=== PATIENT | female | born 1970 | race Hispanic/Latino ===

== ENCOUNTER 2019-05-16 00:13 | Emergency (ER) | payer MEDICAID ==
[2019-05-16] MEDS ORDERED: SODIUM CHLORIDE 0.9% 1000 ML 1,000 ML IV ONE (00:51)
[2019-05-16] MEDS ORDERED: HYOSCYAMINE SUBL 0.125 MG TAB SL ONE (00:51)
[2019-05-16] MEDS ORDERED: PROMETHAZINE 25 MG TAB PO ONE (00:51)
[2019-05-16] MEDS ORDERED: MORPHINE 4 MG/1 ML INJ IV ONE (00:53)
--- NOTE | 2019-05-16 01:40 | Emergency Department Report ---
<JODEE CARTWRIGHT III - Last Filed: 05/16/19 04:01> ED General Adult HPI - General Chief complaint: Nausea/Vomiting/Diarrhea Stated complaint: NAUSEA,ABD PAIN,DIARRHEA Time Seen by Provider: 05/16/19 00:21 - Related Data Previous Rx's Medication Instructions Recorded Last Taken Type Promethazine [Phenergan] 25 mg PO Q8HR PRN #10 tab 05/16/19 Unknown Rx cephALEXin [Keflex] 500 mg PO Q8HR 10 Days #30 cap 05/16/19 Unknown Rx Allergies Allergy/AdvReac Type Severity Reaction Status Date / Time ciprofloxacin Allergy Unknown Verified 05/16/19 00:57 ketorolac [From Toradol] Allergy Unknown Verified 05/16/19 00:57 methadone Allergy Unknown Verified 05/16/19 00:57 metronidazole [From Flagyl] Allergy Unknown Verified 05/16/19 00:57 ondansetron [From Zofran] Allergy Unknown Verified 05/16/19 00:57 phenylephrine Allergy Unknown Verified 05/16/19 00:57 [From Sudafed PE] prochlorperazine Allergy Unknown Verified 05/16/19 00:57 [From Compazine] pseudoephedrine Allergy Nausea Verified 05/16/19 00:57 sulfamethoxazole Allergy Unknown Verified 05/16/19 00:54 [From Bactrim] topiramate Allergy Unknown Verified 05/16/19 00:57 tramadol Allergy Unknown Verified 05/16/19 00:57 trimethoprim [From Bactrim] Allergy Unknown Verified 05/16/19 00:54 ED Past Medical Hx - Medications Home Medications: Home Medications Medication Instructions Recorded Confirmed Last Taken Type Promethazine [Phenergan] 25 mg PO Q8HR PRN #10 tab 05/16/19 Unknown Rx cephALEXin [Keflex] 500 mg PO Q8HR 10 Days #30 cap 05/16/19 Unknown Rx ED Medical Decision Making - Lab Data Result diagrams: 05/16/19 01:23 05/16/19 01:23 ED Disposition Clinical Impression: Generalized abdominal pain, Nausea vomiting and diarrhea UTI (urinary tract infection) Qualifiers: Urinary tract infection type: acute cystitis Hematuria presence: with hematuria Qualified Code(s): N30.01 - Acute cystitis with hematuria Disposition: - TO HOME OR SELFCARE Is pt being admited?: No Does the pt Need Aspirin: No Condition: Stable Instructions: Urinary Tract Infection in Women (ED), Gastroenteritis (ED), Abdominal Pain (ED) Additional Instructions: Please take medication as prescribed. Increase your water intake. Eat a bland diet. Please take the medications you are already prescribed by your other doctors. Follow-up with a primary care doctor. Follow-up with a GI doctor. Return to the emergency room for any new or worsening symptoms. Prescriptions: cephALEXin [Keflex] 500 mg PO Q8HR 10 Days #30 cap Promethazine [Phenergan] 25 mg PO Q8HR PRN #10 tab PRN Reason: Nausea And Vomiting Referrals: your, GI doctor [Other] - 2-3 Days PRIMARY CARE,MD [Primary Care Provider] - 2-3 Days Print Language: INDONESIAN <MILA OCAMPO - Last Filed: 05/17/19 01:50> ED General Adult HPI - General Source: patient, family, certified court/medical interpreter Mode of arrival: Ambulatory Limitations: No Limitations - History of Present Illness Initial comments: Patient is a 48-year-old female presents emergency room with complaints of generalized abdominal pain for a month. She has associated intermittent nausea, vomiting, diarrhea. Patient states that she had a colonoscopy a couple weeks ago by [facility] and is awaiting her biopsy results. She denies any fever, hematochezia, pus in the stool, melena, recent antibiotics, recent travel. She states that she has a history of anemia and is on folic acid. she states that she had a normal CT abd/pelvis at another facility approximately 2-3 weeks ago. Patient states that she is currently taking gabapentin, Bentyl, oxycodone. Patient has multiple allergies listed in her chart. Severity scale (0 -10): 8 ED Review of Systems ROS: Stated complaint: NAUSEA,ABD PAIN,DIARRHEA Other details as noted in HPI Comment: All other systems reviewed and negative ED Past Medical Hx - Past Medical History Previous Medical History?: Yes Hx Hypertension: Yes Hx Diabetes: Yes Hx of Cancer: Yes (colon) Hx Headaches / Migraines: Yes Hx Seizures: Yes Hx Psychiatric Treatment: Yes (Bipolar, depression,anxiety) Additional medical history: biopsy, DDS,GERD,Neuropathy - Surgical History Past Surgical History?: Yes Hx Cholecystectomy: Yes Additional Surgical History: Lap,Knee, hysterectomy, ectopic,D&C - Social History Smoking Status: Never Smoker Substance Use Type: None ED Physical Exam - General Limitations: No Limitations General appearance: alert, in no apparent distress - Head Head exam: Present: atraumatic, normocephalic - Eye Eye exam: Present: normal appearance - ENT ENT exam: Present: mucous membranes moist - Respiratory Respiratory exam: Present: normal lung sounds bilaterally. Absent: respiratory distress, wheezes, rales, rhonchi, stridor, chest wall tenderness, accessory muscle use, decreased breath sounds, prolonged expiratory - Cardiovascular Cardiovascular Exam: Present: regular rate, normal rhythm, normal heart sounds. Absent: systolic murmur, diastolic murmur, rubs, gallop - GI/Abdominal GI/Abdominal exam: Present: soft, tenderness (mild generalized), normal bowel sounds. Absent: distended, guarding, rebound, rigid - Neurological Exam Neurological exam: Present: alert, oriented X3 - Psychiatric Psychiatric exam: Present: normal affect, normal mood - Skin Skin exam: Present: warm, dry, intact ED Course Vital Signs 05/16/19 05/16/19 05/16/19 00:45 01:01 01:15 Pulse Rate 96 H 90 95 H Respiratory 21 18 16 Rate Blood Pressure 135/80 135/80 Blood Pressure 151/79 [Right] O2 Sat by Pulse 97 98 99 Oximetry 05/16/19 05/16/19 05/16/19 01:31 01:45 02:00 Pulse Rate 95 H 88 83 Respiratory 15 20 17 Rate Blood Pressure 135/80 135/80 98/53 Blood Pressure [Right] O2 Sat by Pulse 98 98 Oximetry 05/16/19 05/16/19 05/16/19 02:15 02:31 02:45 Pulse Rate 93 H 101 H 83 Respiratory 13 23 21 Rate Blood Pressure 98/53 135/80 135/80 Blood Pressure [Right] O2 Sat by Pulse 99 97 99 Oximetry 05/16/19 05/16/19 05/16/19 03:00 03:15 03:31 Pulse Rate 83 80 81 Respiratory 20 19 14 Rate Blood Pressure 108/63 108/63 108/63 Blood Pressure [Right] O2 Sat by Pulse 99 97 97 Oximetry 05/16/19 05/16/19 05/16/19 03:45 04:00 04:15 Pulse Rate 80 81 77 Respiratory 15 22 17 Rate Blood Pressure 108/63 122/74 122/74 Blood Pressure [Right] O2 Sat by Pulse 97 95 97 Oximetry ED Medical Decision Making - Lab Data Result diagrams: 05/16/19 01:23 05/16/19 01:23 Lab Results 05/16/19 05/16/19 05/16/19 Range/Units 01:23 01:23 02:39 WBC 4.9 (4.5-11.0) K/mm3 RBC 3.60 L (3.65-5.03) M/mm3 Hgb 12.6 (10.1-14.3) gm/dl Hct 36.8 (30.3-42.9) % MCV 102 H (79-97) fl MCH 35 H (28-32) pg MCHC 34 (30-34) % RDW 14.7 (13.2-15.2) % Plt Count 211 (140-440) K/mm3 Lymph % (Auto) 41.9 H (13.4-35.0) % Blanco % (Auto) 10.3 H (0.0-7.3) % Eos % (Auto) 2.0 (0.0-4.3) % Baso % (Auto) 0.6 (0.0-1.8) % Lymph # 2.0 (1.2-5.4) K/mm3 Blanco # 0.5 (0.0-0.8) K/mm3 Eos # 0.1 (0.0-0.4) K/mm3 Baso # 0.0 (0.0-0.1) K/mm3 Seg Neutrophils % 45.2 (40.0-70.0) % Seg Neutrophils # 2.2 (1.8-7.7) K/mm3 Sodium 144 (137-145) mmol/L Potassium 4.1 (3.6-5.0) mmol/L Chloride 107.3 H (98-107) mmol/L Carbon Dioxide 25 (22-30) mmol/L Anion Gap 16 mmol/L BUN 10 (7-17) mg/dL Creatinine 0.6 L (0.7-1.2) mg/dL Estimated GFR > 60 ml/min BUN/Creatinine Ratio 17 % Glucose 119 H (65-100) mg/dL Calcium 9.2 (8.4-10.2) mg/dL Total Bilirubin 0.20 (0.1-1.2) mg/dL AST 21 (5-40) units/L ALT 31 (7-56) units/L Alkaline Phosphatase 111 (35-129) units/L Total Protein 6.3 (6.3-8.2) g/dL Albumin 3.9 (3.9-5) g/dL Albumin/Globulin Ratio 1.6 % Lipase 9 L (13-60) units/L Urine Color Yellow (Yellow) Urine Turbidity Slightly-cloudy (Clear) Urine pH 5.0 (5.0-7.0) Ur Specific [place] 1.025 (1.003-1.030) Urine Protein 30 mg/dl (Negative) mg/dL Urine Glucose (UA) Neg (Negative) mg/dL Urine Ketones Neg (Negative) mg/dL Urine Blood Mod (Negative) Urine Nitrite Pos (Negative) Urine Bilirubin Neg (Negative) Urine Urobilinogen < 2.0 (<2.0) mg/dL Ur Leukocyte Esterase Sm (Negative) Urine WBC (Auto) 8.0 H (0.0-6.0) /HPF Urine RBC (Auto) 7.0 (0.0-6.0) /HPF U Epithel Cells (Auto) 5.0 (0-13.0) /HPF Urine Bacteria (Auto) 4+ (Negative) /HPF Calcium Oxalate Crystal 1+ Urine Mucus 2+ /HPF - Medical Decision Making Patient is a 48-year-old female presents emergency room with complaints of generalized abdominal pain for a month. She has associated intermittent nausea, vomiting, diarrhea. Patient states that she had a colonoscopy a couple weeks ago by [facility] and is awaiting her biopsy results. She denies any fever, hematochezia, pus in the stool, melena, recent antibiotics, recent travel. She states that she has a history of anemia and is on folic acid. she states that she had a normal CT abd/pelvis at another facility approximately 2-3 weeks ago. Patient states that she is currently taking gabapentin, Bentyl, oxycodone. Patient has multiple allergies listed in her chart. VSS. on exam: mild generalized abd ttp, no guarding, no rebound, no peritoneal signs. labs are stable. UA with evidence of UTI. pt given prescription for keflex and phenergan. advised pt Please take medication as prescribed. Increase your water intake. Eat a bland diet. Please take the medications you are already prescribed by your other doctors. Follow-up with a primary care doctor. Follow-up with a GI doctor. Return to the emergency room for any new or worsening symptoms. - Differential Diagnosis gastroenteritis, obstruction, viral syndrome, IBS, IBD, UTI Critical care attestation.: If time is entered above; I have spent that time in minutes in the direct care of this critically ill patient, excluding procedure time. ED Disposition Is pt being admited?: No Does the pt Need Aspirin: No Time of Disposition: 03:32
[2019-05-16 01:44] LABS: Basophils % (Auto) 0.6 % (0.0-1.8); Eosinophils # (Auto) 0.1 K/mm3 (0.0-0.4); Hematocrit 36.8 % (30.3-42.9); Hemoglobin 12.6 gm/dl (10.1-14.3); Lymphocytes % (Auto) 41.9 % (13.4-35.0); Mean Corpuscular HGB Conc 34 % (30-34); Mean Corpuscular Volume 102 fl (79-97); Monocytes # (Auto) 0.5 K/mm3 (0.0-0.8); Monocytes % (Auto) 10.3 % (0.0-7.3); Platelet Count 211 K/mm3 (140-440); Red Cell Distribution Width 14.7 % (13.2-15.2)
[2019-05-16 02:06] LABS: Alanine Aminotransferase 31 units/L (7-56); Albumin 3.9 g/dL (3.9-5); BUN/Creatinine Ratio 17; Blood Urea Nitrogen 10 mg/dL (7-17); Calcium 9.2 mg/dL (8.4-10.2); Hemolysis Index 23
[2019-05-16 03:40] LABS: Bacteria,Urine 4+ /HPF (Negative); Bilirubin,Urine NEG (Negative); Blood,Urine MOD (Negative); Calcium Oxalate Crystals,Urine 1+; Color,Urine Yellow (Yellow); Mucus,Urine 2+ /HPF; Urobilinogen,Urine < 2.0 mg/dL (<2.0)
[2019-05-16 04:27] VITALS: BP 122/74
== END 2019-05-16 04:28 | disposition home or self-care (01) ==
LOC: ED 00:13
DX: R10.84 Generalized abdominal pain (principal); R11.2 Nausea with vomiting, unspecified; R19.7 Diarrhea, unspecified; N39.0 Urinary tract infection, site not specified; I10 Essential (primary) hypertension; E11.9 Type 2 diabetes mellitus without complications; G43.909 Migraine, unspecified, not intractable, without status migrainosus; R56.9 Unspecified convulsions; F31.9 Bipolar disorder, unspecified; F41.9 Anxiety disorder, unspecified; K21.9 Gastro-esophageal reflux disease without esophagitis; G62.9 Polyneuropathy, unspecified; Z85.038 Personal history of other malignant neoplasm of large intestine; Z98.890 Other specified postprocedural states; Z90.49 Acquired absence of other specified parts of digestive tract; Z90.710 Acquired absence of both cervix and uterus; Z88.8 Allergy status to other drugs, medicaments and biological substances
CPT/HCPCS: 36415; 80053; 81001; 83690; 85025; 96361; 96374; 99284; J2270; J7030; Q0169